=== PATIENT | female | born 1985 | race African-American/Black ===

== ENCOUNTER 2017-04-12 21:51 | Emergency (ER) | payer SELFPAY ==
[~2017-04-12] VITALS: Ht 162.6 cm; Wt 72.6 kg
[~2017-04-12 21:51] MED LIST: BENTYL10 MG ORAL; CIPROFLOXACIN500 M2 ORAL; IBUPROFEN600 MG ORAL; MACROBID100 MG ORAL; NKM; NORCO 5-325 TA1 EACH ORAL; ONDANSETRON ODT4 MG ORAL; PAIN RELIEF500 M1 PO; PEPCID AC10 MG PO
[2017-04-12] MEDS ORDERED: NKM (21:57)
[2017-04-12 22:07] VITALS: BP 110/64
--- NOTE | 2017-04-12 22:08 | Emergency Room Report ---
History of Present Illness General Chief Complaint: Pain Source: Patient Present Illness HPI Patient presents with L foot pain 3 weeks. Heel and bottom of foot. No trauma. No skin lesions. Not radiate to calf. Worse in AMs. Reports 10/10 aching, worse also when walking. No numbness. No fevers. No NVD, not , no dysuria. No diabetes. On feet for job. Allergies: Coded Allergies: No Known Allergies (Verified , 02/09/12) Patient History Past Medical History: see triage record Social History: Denies: smoking - former Social History Narrative with son Last Menstrual Period: 04/08/17 Now: No : 1 Para: 1 Reviewed Nursing Documentation: PMH: Agreed, PSxH: Agreed Nursing Documentation-PMH Past Medical History: No Stated History Hx Gastrointestinal Problems: Yes - UTI 02/2015, LIVER ISSUES Review of Systems All Other Systems: negative except mentioned in HPI Physical Exam Vital Signs Date Time Temp Pulse Resp B/P Pulse Ox O2 Delivery O2 Flow Rate FiO2 04/12/17 21:54 98.2 82 14 110/64 99 Room Air Sp02 EP Interpretation: reviewed, normal General Appearance: well appearing, no apparent distress, GCS 15 Head: normocephalic, atraumatic ENT: hearing grossly normal, normal voice Neck: full range of motion, supple Respiratory: no respiratory distress, speaking full sentences Cardiovascular #2: 2+ dorsalis pedis (L) Musculoskeletal: digits/nails normal, normal range of motion, no calf tenderness, other - heel tenderness to palpation, Achilles tendon intact and not tender. Lateral ligs of ankle not tender. More posterior and bottom of foot Neurologic: alert, normal gait, grossly normal Psychiatric: mood/affect normal Skin: no rash Medical Decision Making Diagnostic Impression: Primary Impression: Plantar fasciitis ER Course Non-traumatic heel pain. DDx: plantar fasciitis, spur, un-noticed contusion, bony abnormality. Xray ordered. Motrin ordered. Xrays normal. Clinical diagnosis. Patient stable for outpatient observation and treatment. Other X-Ray Diagnostic Results Other X-Ray Diagnostic Results : X-Ray ordered: L foot # of Views/Limited Vs Complete: 3 View Indication: Pain EP Interpretation: Yes Interpretation: no dislocation, no soft tissue swelling, no fractures Impression: No acute disease Interpreting ER Provider: Electronic signature Tho Raymond MD Last Vital Signs Date Time Temp Pulse Resp B/P Pulse Ox O2 Delivery O2 Flow Rate FiO2 04/12/17 23:19 1/1 04/12/17 23:10 98.2 04/12/17 22:07 14 99 Room Air 04/12/17 21:54 82 Status: improved Disposition: HOME, SELF-CARE Condition: Improved Scripts Tramadol Hcl* (ULTRAM*) 50 Mg Tablet 50 MG ORAL Q6H Y for For Pain, #10 TAB 0 Refills Prov: Tho Raymond M.D. 04/12/17 Ibuprofen* (MOTRIN*) 600 Mg Tablet 600 MG ORAL Q8H Y for For Pain, #20 TAB 0 Refills Prov: Tho Raymond M.D. 04/12/17 Tho Raymond M.D. Apr 12, 2017 22:08
[2017-04-12] MEDS ORDERED: IBUPROFEN600 MG ORAL (23:09)
[2017-04-12] MEDS ORDERED: TRAMADOL HCL50 MG ORAL (23:09)
[2017-04-12 23:19] VITALS: BP 1/1
--- NOTE | 2017-04-13 09:31 | Diagnostic Imaging Report ---
Indication: Right foot pain Technique: XRAY FOOT MIN 3V RIGHT Comparison: None Findings: There is no acute fracture or dislocation. Bone mineralization is normal. Soft tissues are grossly unremarkable. Impression: No acute osseous abnormality.
== END 2017-04-12 23:15 | disposition home or self-care (01) ==
LOC: EMR 22:10
DX: M72.2 Plantar fascial fibromatosis (principal)
CPT/HCPCS: 99282

== ENCOUNTER 2017-05-22 14:14 | Emergency (ER) | payer SELFPAY ==
[~2017-05-22] VITALS: Ht 165.1 cm; Wt 83.0 kg
[~2017-05-22 14:14] MED LIST changes: +TRAMADOL HCL50 MG ORAL
--- NOTE | 2017-05-22 15:27 | Emergency Room Report ---
History of Present Illness General Chief Complaint: Abdominal Pain Source: Patient, EMS Present Illness HPI 31-year-old female presents to the emergency department complaining of a 7 on a 10 in severity lower midline abdominal pain since last night which got worse the past hour. Patient states initially she had 10 out of 10 in severity pain that was cramping and felt like a "ripping sensation" . She denies nausea, vomiting, constipation, diarrhea, and fevers, chills, vaginal discharge. Denies hx of STD. Patient denies she states she's been on Depo-Provera and recently stopped. Patient states she was due for another injection in one month ago however she did not want to continue. She states menstrual cycles have been irregular and she has just some spotting earlier this month. . Patient states she frequently has to hold her bladder she denies hematuria, dysuria or frequency. Pt. has hx of ovarian cysts denies lateral location of pain. Patient states her pain was a tearing sensation and she was unable to move for several seconds as movement exacerbated her pain. She states pain is constant it does not radiate. Denies CP, Palpitations, LOC, AMS, dizziness, Changes in Vision, Sensation, paresthesias, or a sudden severe headache. Allergies: Coded Allergies: DIPHENHYDRAMINE (Unverified Allergy, Unknown, 05/22/17) Patient History Past Medical History: see triage record Past Surgical History: none Pertinent Family History: none Last Menstrual Period: 05/05/17 Now: No : 1 Para: 1 Reviewed Nursing Documentation: PMH: Agreed, PSxH: Agreed Nursing Documentation-PM Past Medical History: No Stated History Hx Gastrointestinal Problems: Yes - UTI 02/2015, LIVER ISSUES Review of Systems All Other Systems: negative except mentioned in HPI Physical Exam Vital Signs Date Time Temp Pulse Resp B/P (MAP) Pulse Ox O2 Delivery O2 Flow Rate FiO2 05/22/17 14:06 97.5 80 18 105/62 99 Room Air Sp02 EP Interpretation: reviewed, normal General Appearance: no apparent distress, alert, GCS 15, non-toxic Head: normocephalic, atraumatic Eyes: bilateral eye normal inspection, bilateral eye PERRL ENT: hearing grossly normal, normal pharynx, no angioedema, normal voice Neck: full range of motion, supple/symm/no masses Respiratory: lungs clear, normal breath sounds, speaking full sentences Cardiovascular #1: regular rate, rhythm Gastrointestinal: normal bowel sounds, soft, no mass, non-distended, no guarding, no rebound, tenderness - mild ttp to the lower midline abdomen , no RLQ TTP, no LLQ TTP, abdomen is soft, normal bowel sounds. Rectal: deferred Genitourinary: normal inspection, no CVA tenderness, adnexa normal Musculoskeletal: back normal, gait/station normal, normal range of motion, non- tender Neurologic: alert, oriented x3, responsive, motor strength/tone normal, sensory intact, speech normal Psychiatric: judgement/insight normal, memory normal, mood/affect normal Skin: normal color, no rash, warm/dry, well hydrated Medical Decision Making PA Attestation Dr. Barbosa is my supervising Physician whom patient management has been discussed with. Diagnostic Impression: Primary Impression: Abdominal pain Qualified Codes: R10.30 - Lower abdominal pain, unspecified Additional Impression: UTI (lower urinary tract infection) ER Course 31-year-old female presents to the emergency department complaining of a 7 on a 10 in severity lower midline abdominal pain since last night which got worse the past hour. Patient states initially she had 10 out of 10 in severity pain that was cramping and felt like a "ripping sensation" . She denies nausea, vomiting, constipation, diarrhea, and fevers, chills, vaginal discharge. or hx of STD's. Patient denies she states she's been on Depo-Provera and recently stopped. Patient states she was due for another injection in one month ago however she did not want to continue. She states menstrual cycles have been irregular and she has just some spotting earlier this month. . Patient states she frequently has to hold her bladder she denies hematuria, dysuria or frequency. Pt. has hx of ovarian cysts denies lateral location of pain. Patient states her pain was a tearing sensation and she was unable to move for several seconds as movement exacerbated her pain. She states pain is constant it does not radiate. Denies CP, Palpitations, LOC, AMS, dizziness, Changes in Vision, Sensation, paresthesias, or a sudden severe headache. Ddx considered but are not limited to Cystitis PID, acute appy, ectopic , Diverticulitis, PID, dysmenorrhea Vital signs: are WNL, pt. is afebrile H&PE are most consistent with possible cystitis. ORDERS: CBC, CMP, lipase: unremarkable -UA few bacteria with elevated leukocyte esterases, some amorphic sediment and squamous cells, will treat as UTI due to symptoms most construction representative of cystitis -Urine HCG: negative ED INTERVENTIONS: -Pyridium PO -1000cc NS Bolus -30mg Toradol IV - D/W pt. that with her relatively benign PE, and normal laboratory work I do not suspect an emergent condition at this time, and feel she is stable for close outpatient follow up with her PCP. Gave pt. ED return precautions, to return promptly with worsening or new symptoms. DISCHARGE: At this time pt. is stable for d/c to home. Will provide printed patient care instructions, and any necessary prescriptions. Care plan and follow up instructions have been discussed with the patient prior to discharge. Labs Test 05/22/17 15:05 White Blood Count 8.0 K/UL (4.8-10.8) Red Blood Count 4.72 M/UL (4.20-5.40) Hemoglobin 13.1 G/DL (12.0-16.0) Hematocrit 41.7 % (37.0-47.0) Mean Corpuscular Volume 88 FL (80-99) Mean Corpuscular Hemoglobin 27.9 PG (27.0-31.0) Mean Corpuscular Hemoglobin Concent 31.5 G/DL (32.0-36.0) Red Cell Distribution Width 11.0 % (11.6-14.8) Platelet Count 338 K/UL (150-450) Mean Platelet Volume 7.8 FL (6.5-10.1) Neutrophils (%) (Auto) 68.7 % (45.0-75.0) Lymphocytes (%) (Auto) 21.6 % (20.0-45.0) Monocytes (%) (Auto) 5.7 % (1.0-10.0) Eosinophils (%) (Auto) 3.0 % (0.0-3.0) Basophils (%) (Auto) 1.0 % (0.0-2.0) Urine Color Pale yellow Urine Appearance Clear Urine pH 8 (4.5-8.0) Urine Specific [place] 1.010 (1.005-1.035) Urine Protein Negative (NEGATIVE) Urine Glucose (UA) Negative (NEGATIVE) Urine Ketones Negative (NEGATIVE) Urine Occult Blood Negative (NEGATIVE) Urine Nitrite Negative (NEGATIVE) Urine Bilirubin Negative (NEGATIVE) Urine Urobilinogen Normal MG/DL (0.0-1.0) Urine Leukocyte Esterase 3+ (NEGATIVE) Urine RBC 0-2 /HPF (0 - 2) Urine WBC 2-4 /HPF (0 - 2) Urine Squamous Epithelial Cells Moderate /LPF (NONE/OCC) Urine Amorphous Sediment Few /LPF (NONE) Urine Bacteria Few /HPF (NONE) Urine HCG, Qualitative Negative Sodium Level 139 mEQ/L (135-145) Potassium Level 3.8 mEQ/L (3.4-4.9) Chloride Level 101 mEQ/L (98-107) Carbon Dioxide Level 28 mEQ/L (20-30) Anion Gap 10 (5-15) Blood Urea Nitrogen 8 mg/dL (7-23) Creatinine 0.9 mg/dL (0.5-0.9) Estimat Glomerular Filtration Rate > 60 mL/min (>60) Glucose Level 91 mg/dL (74-106) Calcium Level 9.6 mg/dL (8.6-10.2) Total Bilirubin 1.0 mg/dL (0.0-1.2) Aspartate Amino Transf (AST/SGOT) 12 U/L (5-40) Alanine Aminotransferase (ALT/SGPT) 8 U/L (3-33) Alkaline Phosphatase 55 U/L (35-104) Total Protein 7.3 g/dL (6.6-8.7) Albumin 4.1 g/dL (3.5-5.2) Globulin 3.2 g/dL Albumin/Globulin Ratio 1.2 (1.0-2.7) Lipase 22 U/L (< 60) Last Vital Signs Date Time Temp Pulse Resp B/P (MAP) Pulse Ox O2 Delivery O2 Flow Rate FiO2 05/22/17 14:06 97.5 80 18 105/62 99 Room Air Disposition: HOME, SELF-CARE Condition: Stable Scripts Ibuprofen* (MOTRIN*) 600 Mg Tablet 600 MG ORAL THREE TIMES A DAY, #30 TAB 0 Refills Prov: Mariel Vicente P.A. 05/22/17 Phenazopyridine Hcl* (PYRIDIUM*) 200 Mg Tablet 200 MG ORAL THREE TIMES A DAY for 3 Days, #9 TAB 0 Refills Prov: VicenteMariel woodruff 05/22/17 Nitrofurantoin Monohyd/M-Cryst* (MACROBID 100 MG*) 100 Mg Capsule 100 MG ORAL EVERY 12 HOURS for 5 Days, #10 CAP Prov: Mariel Vicente 05/22/17 Patient Instructions: Abdominal Pain, Adult, Urinary Tract Infection, Easy-to- Read Additional Instructions: Take medications as directed. Follow up with a Primary Care Provider in 3-5 days, even if your symptoms have resolved. --Please review list of primary care clinics, if you do not already have a primary care provider Return sooner to ED if new symptoms occur, or current symptoms become worse. Do not drink alcohol, drive, or operate heavy machinery while taking [ ] as this may cause drowsiness. - Please note that this Emergency Department Report was dictated using [facility] assistant manager technology software, occasionally this can lead to erroneous entry secondary to interpretation by the dictation equipment. Mariel Vicente May 22, 2017 15:27
[2017-05-22] MEDS ORDERED: Ketorolac 30mg Inj IV ONE (15:30)
[2017-05-22 15:49] LABS: APPEARANCE,URINE CLEAR; KETONES,URINE NEGATIVE (NEGATIVE); LEUKOCYTE ESTERASE ,URINE 3+ (NEGATIVE); NITRITE,URINE NEGATIVE (NEGATIVE); PH,URINE 8 (4.5-8.0); PROTEIN,URINE NEGATIVE (NEGATIVE); UROBILINOGEN,URINE NORMAL MG/DL (0.0-1.0)
[2017-05-22 15:52] LABS: LYMPHOCYTES % (AUTO) 21.6 % (20.0-45.0); MEAN CORPUSCULAR HEMOGLOBIN 27.9 PG (27.0-31.0); MEAN CORPUSCULAR HGB CONC 31.5 G/DL (32.0-36.0); MEAN CORPUSCULAR VOLUME 88 FL (80-99); MEAN PLATELET VOLUME 7.8 FL (6.5-10.1); MONOCYTES % (AUTO) 5.7 % (1.0-10.0); NEUTROPHILS % (AUTO) 68.7 % (45.0-75.0); PLATELET COUNT 338 K/UL (150-450); RED BLOOD COUNT 4.72 M/UL (4.20-5.40)
[2017-05-22 16:04] LABS: ALANINE AMINOTRANSFERASE 8 U/L (3-33); ALBUMIN/GLOBULIN RATIO 1.2 (1.0-2.7); ANION GAP 10 (5-15); ASPARTATE AMINO TRANSFERASE 12 U/L (5-40); CALCIUM 9.6 mg/dL (8.6-10.2); CARBON DIOXIDE 28 mEQ/L (20-30); CHLORIDE 101 mEQ/L (98-107); CREATININE 0.9 mg/dL (0.5-0.9); GLOMERULAR FILTRATION RATE > 60 mL/min (>60); HEMOLYSIS 3; LIPASE 22 U/L (< 60); POTASSIUM 3.8 mEQ/L (3.4-4.9); SODIUM 139 mEQ/L (135-145); TOTAL PROTEIN 7.3 g/dL (6.6-8.7)
[2017-05-22 16:07] LABS: AMORPHOUS SEDIMENT,UR FEW /LPF; BACTERIA,URINE FEW /HPF; RBC,URINE 0-2 /HPF (0 - 2); SQUAMOUS EPITHELIAL CELL,UR MODERATE /LPF (NONE/OCC)
[2017-05-22] MEDS ORDERED: Phenazopyridine 200mg tab ORAL ONE (16:15)
[2017-05-22] MEDS ORDERED: NITROFURANTOIN100 M2 ORAL (16:32)
[2017-05-22] MEDS ORDERED: PHENAZOPYRIDIN200 MG ORAL (16:32)
[2017-05-22] MEDS ORDERED: IBUPROFEN600 MG ORAL (16:32)
[2017-05-22 17:10] VITALS: BP 111/71
== END 2017-05-22 17:10 | disposition home or self-care (01) ==
LOC: EDBD 14:14 → EMR 15:10
DX: R10.30 Lower abdominal pain, unspecified (principal); N39.0 Urinary tract infection, site not specified; Z88.8 Allergy status to other drugs, medicaments and biological substances
CPT/HCPCS: 36415; 80053; 81003; 81025; 83690; 85025; 96360; 96374; 99284; J1885